=== PATIENT | female | born 1950 | race Caucasian/White ===

== ENCOUNTER 2024-03-04 07:01 | Emergency (ER) | payer OTHER ==
[2024-03-04] MEDS ORDERED: ACETAMINOPHEN 500 MG TAB ONE (08:02)
--- NOTE | 2024-03-04 08:19 | RAD REPORT ---
Exam:Ankle Left 3 View HISTORY: left ankle pain FINDINGS: Soft tissue swelling lateral malleolus. Bony density adjacent to the lateral malleolus probably chron ic. An acute avulsion fracture is possible but probably less likely. A joint effusion is present. No dislocation seen
--- NOTE | 2024-03-04 08:20 | RAD REPORT ---
Exam:Knee Right 3 View HISTORY: Right knee pain FINDINGS: No fracture or dislocation seen Moderate osteoarthritis medial compartment. Moderate joint effusion. If the patient continues to have symptoms to suggest an occult fracture, ligamentous or meniscal inju ry then MRI would be recommended.
--- NOTE | 2024-03-04 08:43 | ER ---
Nurse's Notes [facility] Name: Elizabeth Renee Age: 73 yrs Sex: Female : 1950 Arrival Date: 03/04/2024 Time: 07:01 Bed 11 Private MD: Diagnosis: Pain in right knee;Sprain of ankle Presentation: 03/04 07:18 Chief complaint: Patient states: fell to right knee last night, knee gave out, pain to iw right knee and left ankle. Coronavirus screen: At this time, the client does not indicate any symptoms associated with coronavirus-19. Ebola Screen: No symptoms or risks identified at this time. Initial Sepsis Screen: Does the patient meet any 2 criteria? No. Patient's initial sepsis screen is negative. Does the patient have a suspected source of infection? No. Patient's initial sepsis screen is negative. Onset of symptoms was March 03, 2024. 07:18 Method Of Arrival: Wheelchair iw 07:18 Acuity: MELVIN 4 iw 07:18 Risk Assessment: Do you want to hurt yourself or someone else? Patient reports no iw desire to harm self or others. Historical: - Allergies: 07:19 PENICILLINS; iw - Home Meds: 07:19 Xarelto oral [Active]; iw - PMHx: 07:19 Atrial fibrillation; iw 07:20 Hypercholesterolemia; Hypertensive disorder; iw - PSHx: 07:19 Cholecystectomy; iw - Immunization history:: Adult Immunizations not up to date. - Infectious Disease History:: Denies. - Social history:: Smoking status: Patient reports the use of cigarette tobacco products. - Family history:: not pertinent. Screenin:10 [facility] ED Fall Risk Assessment (Adult) History of falling in the last 3 months, iw including since admission Yes- single mechanical fall (1 pt) Confusion or Disorientation No (0 pts) Intoxicated or Sedated No (0 pts) Impaired Gait Yes (1 pt) Mobility Assist Device Used Yes (1 pt) Altered Elimination No (0 pt) Score/Fall Risk Level 0 - 2 = Low Risk Oriented to surroundings, Maintained a safe environment. Abuse screen: Denies injuries from another. Nutritional screening: No deficits noted. Tuberculosis screening: No symptoms or risk factors identified. Assessment: 07:18 General: Appears in no apparent distress. Behavior is calm, cooperative. Pain: iw Complains of pain in right knee. Neuro: Level of Consciousness is awake, alert, obeys commands, Oriented to person, place, time, situation, Full function. Cardiovascular: Patient's skin is warm and dry. Respiratory: Respiratory effort is even, unlabored, Respiratory pattern is regular. Derm: Skin is intact, is healthy with good turgor. Musculoskeletal: Range of motion: limited in left ankle and right knee. 08:10 Reassessment: Patient appears in no apparent distress at this time. Patient and/or iw family updated on plan of care and expected duration. Pain level reassessed. Patient is alert, oriented x 3, equal unlabored respirations, skin warm/dry/pink. 08:41 Reassessment: Dr. Herrera at bedside. iw Vital Signs: 07:18 BP 162 / 98; Pulse 88; Resp 16; Temp 97.1; Pulse Ox 97% on R/A; Weight 83.91 kg; Height iw 5 ft. 5 in. ; Pain 8/10; 07:18 Body Mass Index 30.79 (83.91 kg, 165.1 cm) iw 07:18 Pain Scale: Adult iw ED Course: 07:03 Patient arrived in ED. vc1 07:18 Basilia King, RN is Primary Nurse. iw 07:19 Triage completed. iw 07:20 Arm band placed on. iw 07:20 Provided Education on: xray. iw 07:39 Adonis Herrera MD is Attending Physician. rt 08:05 Knee Right 3 View XRAY In Process Unspecified. EDMS 08:05 Ankle Left 3 View XRAY In Process Unspecified. EDMS 08:11 No provider procedures requiring assistance completed. iw 08:12 Patient has correct armband on for positive identification. iw 09:02 Patient did not have IV access during this emergency room visit. iw Administered Medications: 08:07 Drug: Acetaminophen PO 1000 mg PO once Route: PO; iw 08:30 Follow up: Response: No adverse reaction iw Medication: 08:00 VIS not applicable for this client. iw Outcome: 08:42 Discharge ordered by . rt 09:03 Discharged to home via wheelchair, iw 09:03 Condition: good 09:03 Discharge instructions given to patient, Instructed on discharge instructions, follow up and referral plans. medication usage, Demonstrated understanding of instructions, follow-up care, 09:04 Patient left the ED. iw Signatures: Dispatcher [employer] Basilia Curry RN RN iw Mahogany Jain RN RN vc1 Adonis Herrera MD MD rt Corrections: (The following items were deleted from the chart) 07:20 07:19 Allergies: No Known Allergies; iw iw
--- NOTE | 2024-03-04 08:43 | EDPHYS ---
Physician Documentation [facility] Name: Elizabeth Renee Age: 73 yrs Sex: Female : 1950 Arrival Date: 03/04/2024 Time: 07:01 Bed 11 Private MD: ED Physician Adonis Herrera HPI: 03/04 11:39 This 73 yrs old Female presents to ER via Wheelchair with complaints of Knee Injury. rt 11:39 Patient presents to the ED with right knee, left ankle pain. Patient states that her rt knee "gave out" and then she fell twisting her ankle. She denies other pain, acute complaints, symptoms are aching nature, nonradiating, moderate severity, no other aggravating elevating factors. Denies loss of consciousness, head trauma.. Historical: - Allergies: 07:19 PENICILLINS; iw - Home Meds: 07:19 Xarelto oral [Active]; iw - PMHx: 07:19 Atrial fibrillation; iw 07:20 Hypercholesterolemia; Hypertensive disorder; iw - PSHx: 07:19 Cholecystectomy; iw - Immunization history:: Adult Immunizations not up to date. - Infectious Disease History:: Denies. - Social history:: Smoking status: Patient reports the use of cigarette tobacco products. - Family history:: not pertinent. ROS: 11:39 Constitutional: Negative for fever, chills, and weight loss, Cardiovascular: Negative rt for chest pain, palpitations, and edema, Respiratory: Negative for shortness of breath, cough, wheezing, and pleuritic chest pain, Abdomen/GI: Negative for abdominal pain, nausea, vomiting, diarrhea, and constipation, Skin: Negative for injury, rash, and discoloration, Neuro: Negative for headache, weakness, numbness, tingling, and seizure, 11:39 MS/extremity: Positive for pain, swelling, Exam: 11:39 Constitutional: This is a well developed, well nourished patient who is awake, alert, rt and in no acute distress. Head/Face: Normocephalic, atraumatic. Respiratory: Lungs have equal breath sounds bilaterally, clear to auscultation and percussion. No rales, rhonchi or wheezes noted. No increased work of breathing, no retractions or nasal flaring. Abdomen/GI: Soft, non-tender, with normal bowel sounds. No distension or tympany. No guarding or rebound. No evidence of tenderness throughout. Skin: Warm, dry with normal turgor. Normal color with no rashes, no lesions, and no evidence of cellulitis. Neuro: Awake and alert, GCS 15, oriented to person, place, time, and situation. Cranial nerves II-XII grossly intact. Motor strength 5/5 in all extremities. Sensory grossly intact. Cerebellar exam normal. Normal gait. 11:39 Musculoskeletal/extremity: Mild swelling, tenderness diffusely to the right knee, left ankle. Pulses, motor, sensation are intact, skin is intact.. Vital Signs: 07:18 BP 162 / 98; Pulse 88; Resp 16; Temp 97.1; Pulse Ox 97% on R/A; Weight 83.91 kg; Height iw 5 ft. 5 in. ; Pain 8/10; 07:18 Body Mass Index 30.79 (83.91 kg, 165.1 cm) iw 07:18 Pain Scale: Adult iw MDM: 07:39 Medical Screening Exam initiated rt 11:39 Differential Diagnosis Fracture, sprain, soft tissue injury. Data reviewed: vital rt signs, nurses notes, radiologic studies. I considered the following discharge prescriptions or medication management in the emergency department Medications were administered in the Emergency Department. See MAR. Independent interpretation of the following test(s) in the Emergency Department X-Ray: My interpretation is No fracture seen on interpretation of x-ray. Care significantly affected by the following chronic conditions: Hypertension. Response to treatment: the patient's symptoms have mildly improved after treatment. 03/04 07:47 Order name: Knee Right 3 View XRAY; Complete Time: 08:31 rt 03/04 07:47 Order name: Ankle Left 3 View XRAY; Complete Time: 08:31 rt Administered Medications: 08:07 Drug: Acetaminophen PO 1000 mg PO once Route: PO; iw 08:30 Follow up: Response: No adverse reaction iw Disposition Summary: 03/04/24 08:42 Discharge Ordered Notes: Location: Home rt Problem: new rt Symptoms: have improved rt Condition: Stable rt Diagnosis - Pain in right knee rt - Sprain of ankle rt Followup: rt - With: Private Physician - When: 2 - 3 days - Reason: Discharge Instructions: - Discharge Summary Sheet rt - Ankle Sprain rt - Acute Knee Pain, Adult rt Forms: - Medication Reconciliation Form rt - Antibiotic Education rt - Prescription Opioid Use rt - Patient Portal Instructions rt - Leadership Thank You Letter rt Signatures: Dispatcher [employer] Basilia Curry RN RN Adonis Ramos MD MD rt Corrections: (The following items were deleted from the chart) 07:20 07:19 Allergies: No Known Allergies; trinh tsang
[2024-03-04 11:14] VITALS: BP 162/98; TEMP 97.1; O2SAT 97
== END 2024-03-04 09:04 | disposition home or self-care (01) ==
LOC: ER 07:01
DX: M25.561 Pain in right knee (principal); S93.402A Sprain of unspecified ligament of left ankle, initial encounter; Z79.01 Long term (current) use of anticoagulants; Z72.0 Tobacco use
CPT/HCPCS: 99283